=== PATIENT | female | born 1955 | race Caucasian/White ===

== ENCOUNTER 2016-06-24 10:55 | Emergency (ER) | payer OTHER ==
--- NOTE | 2016-06-24 12:35 | DIAGNOSTIC IMAGING REPORT ---
PROCEDURE: CT HEAD WITHOUT CONTRAST INDICATION: DIZZINESS TECHNIQUE: Axial CT images were acquired through the head. Coronal and sagittal reformations were created. COMPARISON: None. FINDINGS: No intracranial hemorrhage or extraaxial fluid collections. Ventricles are normal in size, shape and position. There is no mass, mass effect or midline shift. The terrazas-white matter differentiation is normal. There is no edema. The calvarium is intact. The paranasal sinuses and mastoid air cells are normally aerated. The extracranial soft tissues and orbits are normal. IMPRESSION: 1. No CT evidence of acute intracranial process. 2. Findings discussed with emergency department at 12:[address] scans at this facility use dose modulation, iterative reconstruction, and/or weight-based dosing when appropriate to reduce radiation dose to as low as reasonably achievable.
--- NOTE | 2016-06-24 12:36 | DIAGNOSTIC IMAGING REPORT ---
PROCEDURE: XR CHEST 1 VIEW INDICATION: CHEST PAIN TECHNIQUE: Portable AP view 12:12 p.m. COMPARISON: None. FINDINGS: Lungs are clear. Heart and mediastinum are normal. Thorax is normal. IMPRESSION: 1. Negative chest.
--- NOTE | 2016-06-24 14:33 | DIAGNOSTIC IMAGING REPORT ---
PROCEDURE: US BILATERAL CAROTID DOPPLER INDICATION: APHASIA TECHNIQUE: Color Doppler duplex imaging of the carotid and vertebral vessels. COMPARISON: None. FINDINGS: Right carotid system: No significant stenosis visualized. The waveforms are normal. Left carotid system: No significant stenosis visualized. The waveforms are normal. Vertebral System: Antegrade vertebral artery flow bilaterally. Right common carotid artery peak systolic velocity 96 cm/second. Right internal carotid artery peak systolic velocity 73 cm/second. Right external carotid artery peak systolic velocity 127 cm/second. Right qphfqlqv-vb-gqlljw carotid artery ratio 0.76 Right vertebral artery peak systolic velocity 55 cm/second. Left common carotid artery peak systolic velocity 70 cm/second. Left internal carotid artery peak systolic velocity 80 cm/second. Left external carotid artery peak systolic velocity 92 cm/second. Left wnlfglyl-zp-ugiwho carotid artery ratio 1.14 Left vertebral artery peak systolic velocity 36 cm/second. IMPRESSION: 1. No hemodynamically significant stenosis in either carotid system. 2. Antegrade vertebral artery flow bilaterally. Velocity criteria are extrapolated from diameter data as defined by the Society of Radiologists in Ultrasound Consensus Conference, Radiology 2003; 229; 340-346.
--- NOTE | 2016-06-24 14:33 | DIAGNOSTIC IMAGING REPORT ---
PROCEDURE: US BILATERAL CAROTID DOPPLER INDICATION: APHASIA TECHNIQUE: Color Doppler duplex imaging of the carotid and vertebral vessels. COMPARISON: None. FINDINGS: Right carotid system: No significant stenosis visualized. The waveforms are normal. Left carotid system: No significant stenosis visualized. The waveforms are normal. Vertebral System: Antegrade vertebral artery flow bilaterally. Right common carotid artery peak systolic velocity 96 cm/second. Right internal carotid artery peak systolic velocity 73 cm/second. Right external carotid artery peak systolic velocity 127 cm/second. Right lzjfnsid-kf-ihpkmd carotid artery ratio 0.76 Right vertebral artery peak systolic velocity 55 cm/second. Left common carotid artery peak systolic velocity 70 cm/second. Left internal carotid artery peak systolic velocity 80 cm/second. Left external carotid artery peak systolic velocity 92 cm/second. Left vgztohrq-np-addmgh carotid artery ratio 1.14 Left vertebral artery peak systolic velocity 36 cm/second. IMPRESSION: 1. No hemodynamically significant stenosis in either carotid system. 2. Antegrade vertebral artery flow bilaterally. Velocity criteria are extrapolated from diameter data as defined by the Society of Radiologists in Ultrasound Consensus Conference, Radiology 2003; 229; 340-346.
--- NOTE | 2016-06-24 15:01 | ED NURSING NOTES ---
Clinical Report - Nurses [facility] [address] [place] [address] 06/24/2016 10:57 Patient: IGNACIO TORRES [facility] [id number] TRIAGE Triage time 11:07. Acuity: LEVEL 3. Chief Complaint: HEADACHE, DIZZINESS, NUMBNESS, WEAKNESS and NAUSEA (Sent from [facility], re posible stroke symptoms. Speech patterns in slow, and deliberate. Lt shoulder is weaker, 4th and 5th fingers of the rt hand shake. Lt arm numb and tingly.). Alert. No acute distress. NEO COMA SCORE: Neo Coma Scale: 15- eyes open spontaneously (4); best verbal response- oriented x 4 (5); best motor response- obeys commands (6). --11:29 Kanika Shultz R.N. 11:07 06/24/16. BP: 215/75. HR: 57. RR: 17. O2 saturation: 96%. Temp: 98.5 F. Pain level now: 0/10. --11:29 Kanika Shultz R.N. Weight: 136.5 kg stated. Height/Length: 64 inches Per Patient. BMI: 51.7. --11:23 Kanika Shultz R.N. Medications Atenolol Oral 50 mg, 2x a day. --11:16 Kanika Shultz R.N. FLUoxetine HCl Oral 60mg day . --11:16 Kanika Shultz R.N. TraZODone HCl Oral 100 mg, at bedtime. --11:17 Kanika Shultz R.N. Allergy 4 Hour Oral (Tablet 4 mg) 1 tablet, q 4 hrs . --11:17 Kanika Shultz R.N. Robaxin Oral 750 mg, 3x a day as needed. --11:19 Kanika Shultz R.N. Albuterol Sulfate HFA Inhalation. --11:22 Kanika Shultz R.N. Allergies Sulfa. --11:19 Kanika Shultz R.N. Codeine. --11:19 Kanika Shultz R.N. History Arrived by private vehicle. Historian: patient. Accompanied by family. Primary physician (monique). Onset. (7 - 10 days ago, s/s are getting worse, especially the speech). 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 PAST MEDICAL HX: Immunizations: status is unknown. The patient has had a hysterectomy. SOCIAL HX: Smoker- current status unknown. Occasional alcohol use. No drug use. FALL RISK ASSESSMENT: Fall risk assessment completed. No fall risk identified. NUTRITIONAL RISK ASSESSMENT: The nutritional risk assessment revealed no deficiencies. FUNCTIONAL ASSESSMENT: Functional assessment: no impairments noted. LEARNING NEEDS ASSESSMENT: The learning needs assessment revealed no barriers. SKIN INTEGRITY ASSESSMENT: Skin integrity risk assessment completed. No skin integrity risk identified. --11:29 Kanika Shultz R.N. PROBLEMS: Depression. Asthma. Insomnia . Anxiety, PTSD. Hypertension. Hyperlipidemia. Obese. --11:21 Kanika Shultz R.N. ADDITIONAL SURGERIES: Appendectomy. Cholecystectomy. Hysterectomy. --11:23 Kanika Shultz R.N. Interventions ID band on patient. To room. --11:29 Kanika Shultz R.N. PHYSICAL ASSESSMENT Ambulatory to room. Patient gowned. GENERAL / NEURO / PSYCH: Alert. Oriented X 4. Appears in no acute distress. Appears anxious. HEENT: No facial asymmetry noted. Mucous membranes are pink. RESPIRATORY: Respirations not labored. CVS: Capillary refill less than 2 seconds. Pulses within normal limits. GI / : Abdomen nontender and normal bowel sounds. SKIN: Skin intact. Skin is warm and dry. Normal skin turgor. --11:30 Kanika Shultz R.N. NURSING PROGRESS NOTES Pulse oximeter placed on patient; monitor alarms on. Patient gowned. Head of bed elevated. Two patient identifiers checked. Call light placed in reach. Side rails up x 2. Bed placed in lowest position. Brakes of bed on. Patient ready for evaluation. --11:30 Kanika Shultz R.N. 11:16 06/24/2016 Site #1 started via IV in the left hand with an 20g angiocath, with aseptic technique and good blood return; one attempt. Saline lock flushed with 10 mL saline (Lab here to draw blood.). --11:31 Kanika Shultz R.N. 11:20. Patient ID band checked for patient name: patient confirmed. Instructions provided to collect clean catch urine and patient verbalized understanding. Clean catch urine collected with return of yellow-colored clear urine; sample sent to lab for urinalysis and culture. Specimen labeled in the presence of the patient. --11:32 Kanika Shultz R.N. EKG time: (2014). EKG was ordered, performed by a tech and shown to the ED physician. --12:15 Cornelia Thayer ER Tech1 13:40 06/24/16. BP: 116/74. HR: 56. RR: 18. O2 saturation: 97% on room air. 12:11 06/24/16. BP: 127/76. HR: 59. RR: 16. O2 saturation: 98% on room air. Pain level now: 010. --13:41 Kanika Shultz R.N. ( US done in the room.). --13:43 Kanika Shultz R.N. 15:25 06/24/2016 Site #1 removed upon discharge. Catheter intact. Bandaid applied. --15:33 Kanika Shultz R.N. DISPOSITION / DISCHARGE 15:25. Condition at departure: improved. No learning barriers present. Discharge instructions provided and reviewed with the patient. Reviewed medication(s) side effects, precautions, dosing and course information. Prescription(s) given to the patient. Activity restrictions (rest) reviewed. Patient verbalized understanding. Written instructions provided in [place]. The patient was discharged home and accompanied by family. She left the Emergency Department ambulatory and via private vehicle. Family member driving. Medication list reviewed and validated. --15:35 Kanika Shultz R.N. 15:20 06/24/16. BP: 122/60. HR: 60. RR: 16. O2 saturation: 99%. Temp: deferred. Pain level now: 02/24. 13:40 06/24/16. BP: 116/74. HR: 56. RR: 18. O2 saturation: 97% on room air. 12:11 06/24/16. BP: 127/76. HR: 59. RR: 16. O2 saturation: 98% on room air. Pain level now: 0/10. 11:07 06/24/16. BP: 215/75. HR: 57. RR: 17. O2 saturation: 96%. Temp: 98.5 F. Pain level now: 0/10. --15:35 Kanika Shultz R.N. Locked/Released at 06/24/2016 15:36 by Kanika Shultz R.N.
--- NOTE | 2016-06-24 15:01 | ED CLINICAL REPORT ---
Clinical Report - Physicians/Mid Levels [facility] [address] [place] [address] 06/24/2016 10:57 [id number] Time Seen: 11:44 Jun 24 2016. Arrived- By private vehicle. Historian- patient. CPT: ER phys charges level 5 plus (#[id number]). EKG interpretation (#[id number]). HISTORY OF PRESENT ILLNESS Chief Complaint: Difficulty with speech, dizziness and Cp on and off for a week. 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 (7 - 10 days ago, s/s are getting worse, especially the speech). and is still present. At its maximum, severity described as moderate. When seen in the E.D., severity described as moderate. Modifying factors. Not worsened by anything. Not relieved by anything. No headache, visual disturbance, muscle aches or weakness. She has had fatigue. Denies sleep problem. No decreased urine output. (No other reported neuro deficits. Pt reports that PCP today noted a possible weakness on the left.). Similar symptoms previously: Milder. Diagnosis: (stress). Recent medical care: Not recently seen/assessed. REVIEW OF SYSTEMS No fever, sore throat, sinus drainage, nasal congestion or cough. No difficulty breathing, chest pain, abdominal pain, nausea or vomiting. No diarrhea, black stools, bloody stools, difficulty with urination or skin rash. No headache, blackouts or double vision. No difficulty with ambulation. Daughter indicates she gets some stuttering with stress. Daughter and her kids just moved in with the patient. Dizziness can come with rest. No pre-syncope or vertigo. PAST HISTORY Depression. Asthma. Insomnia . Anxiety, PTSD. Hypertension. Hyperlipidemia. Obese. . ADDITIONAL SURGERIES: Appendectomy. Cholecystectomy. Hysterectomy. SOCIAL HISTORY Occasional alcohol use. No drug use. ADDITIONAL NOTES The nursing notes have been reviewed. PHYSICAL EXAM Vital Signs: 06/24/2016 11:07 BP: 215/75. HR: 57. RR: 17. O2 saturation: 96%. Temp: 98.5 F. Pain level now: 0/10. Appearance: Alert. No acute distress. Eyes: Pupils equal, round and reactive to light. Eyes normal inspection. ENT: Ears normal. Nose normal. Pharynx normal. Neck: Normal inspection. Neck supple. CVS: Normal heart rate and rhythm. Heart sounds normal. Pulses normal. Respiratory: No respiratory distress. Moderate left mid- costochondral tenderness. The tenderness is well-localized and reproduces the patient's subjective complaint. Breath sounds normal. Abdomen: Soft and nontender. Back: Normal inspection. Skin: Skin warm. Normal skin color. Rash present. Extremities: Extremities exhibit normal ROM. Neuro: NIH Stroke Scale: score 1. Level of Consciousness: alert (0). LOC Questions: both (0). LOC Commands: both (0). Best gaze: normal (0). Visual field loss: none (0). Facial palsy: normal (0). Motor arm: no drift right arm (0) and no drift left arm (0). Motor leg: no drift right leg (0) and no drift left leg (0). Limb ataxia: none (0). Sensory loss: none (0). Dysarthria: mild to moderate (1). Extinction and inattention: none (0). LABS, X-RAYS, AND EKG EKG: Normal sinus rhythm. Rate: 56. Bradycardia. Normal P waves. Decreased QRS voltage in the limb leads. Non-specific T wave changes lead 3 and AVF. Prior EKG unavailable. The study has been interpreted contemporaneously. The study has been independently viewed by me. The EKG appears to be a good tracing. Chest X-ray: Normal Chest X-Ray. CT Head: No acute changes. Head CT performed without contrast. The study was independently viewed by me and interpreted by the radiologist. Laboratory Tests: UA-Culture if indicated: (LUCHO: 06/24/2016 11:00) ( MsgRcvd 06/24/2016 12:29) Final results Test Result Flag Units (Reference) URINE COLOR YELLOW URINE APPEARANCE CLEAR URINE GLUCOSE NEGATIVE (NEGATIVE) URINE BILIRUBIN NEGATIVE (NEGATIVE) URINE KETONE NEGATIVE (NEGATIVE) URINE SPECIFIC GRAVITY 1.025 (1.010-1.030) URINE PH 6.0 (5.0-8.0) URINE PROTEIN NEGATIVE (NEGATIVE) URINE UROBILINOGEN 0.2 EU/dL (0.2-1.0) URINE NITRITE NEGATIVE (NEGATIVE) URINE BLOOD TRACE-INTACT (NEGATIVE) URINE LEUK ESTERASE NEGATIVE (NEGATIVE) URINE RBC RARE rbc/hpf (0-1) URINE WBC 0-1 wbc/hpf (0-1) URINE EPITHELIAL CELLS RARE EPI/hpf (0-5) URINE BACTERIA TRACE (<1+) (NONE SEEN) URINE COMMENT CULT NOT INDICATED URINE CULTURES ARE SET-UP BASED ON THE FOLLOWING CRITERIA:POSITIVE NITRITEPOSITIVE LEUKOCYTE ESTERASEGREATER THAN 10 WHITE BLOOD CELLSMODERATE (2+) OR GREATER BACTERIA CBC w Diff: (LUCHO: 06/24/2016 11:33) ( [facility] 06/24/2016 12:14) Final results Test Result Flag Units (Reference) WHITE BLOOD COUNT 7.9 K/uL (4.5-11.5) RED BLOOD COUNT 4.62 M/uL (4.00-5.20) HEMOGLOBIN 12.8 gm/dL (12.0-16.0) HEMATOCRIT 38.3 % (36.0-46.0) MEAN CELL VOLUME 83 fL (80-100) MEAN CORPUSCULAR HGB 28 pg (26-34) MEAN CORPUSCULAR HGB CONC 34 g/dL (31-37) RED CELL DISTRIBUTION WIDTH 14.2 % (11.6-14.8) PLATELET COUNT 290 K/uL (150-400) NEUTROPHIL % 72.3 % (50-75) LYMPH % 18.8 L % (25-40) MONO % 5.5 % (3-14) EOSINOPHIL % 3.0 % (0-4) BASOPHIL % 0.4 % (0-2) [id number]: (LUCHO: 06/24/2016 11:33) ( [facility] 06/24/2016 12:39) Final results Test Result Flag Units (Reference) D-DIMER QUANTITATIVE 0.32 ug/mLFEU (0.27-0.52) The primary value of this quantitative assay relates toits negative predictive value (i.e. exclusion) of pulmonaryembolism/deep vein thrombosis/DIC.Elevated levels of d-dimer may also occur with:, age, cancer, inflammation, liver disease,post-op, infection, hematoma, coronary disease, peripheralarteriopathy, bleeding disorders and thrombolytic treatment.Results should be correlated with other clinical andradiological data.Testing Methodology: Latex Immunoassay [id number]: (LUCHO: 06/24/2016 11:00) ( MsgRcvd 06/24/2016 12:56) Final results Test Result Flag Units (Reference) URINE DRUG SCREEN NEGATIVE The urine drug screen is a qualitative screening test fordrug overdose and abuse. All screen results should beconsidered as presumptive.Drugs screened for are as follows:PCP (Phencyclidine)BenzodiazepinesCocaineAmphetamines/MetamphetaminesTHC (Tetrahydrocannabinol)OpiatesBarbituratesTCA (Tricyclic Antidepressants)MethadonePositive results are unconfirmed. For confirmation, notifythe lab for the specimen to be sent to the reference lab.All confirmations must be performed by a differentmethodology.The ingestion of natural herbal and plant productscontaining Ephedra/Ephedra metabolites can produce in urineone or more substances capable of cross reacting withamphetamine/methamphetamine immunoassays. This testprovides a preliminary result only. A more specificalternative chemical method must be used to obtain aconfirmed analytical result. [id number]: (LUCHO: 06/24/2016 11:33) ( MsgRcvd 06/24/2016 12:46) Final results Test Result Flag Units (Reference) PROCALCITONIN <0.5 ng/mL (0-0.5) PCT Concentration: Interpretation : Risk/option for action PCT <=0.5 ng/mL : Systemic : Low risk forinfection(sepsis): progression to severeis not likely. : systemic infection.Local bacterial : CAUTION-PCT levelsinfection is : below 0.5 ng/mL do notpossible. : exclude an infection,because localizedinfections (withoutsystemic signs) may beassociated with suchlow levels. If PCT ismeasured very earlyafter a bacterialchallenge (usually <6hours), these valuesmay still be low. Inthis case PCT shouldbe re-assessed 6-24hours later. PCT >0.5 and : Systemic infection: Moderate risk for<= 2 ng/mL : (sepsis) is : progression to severepossible, but : systemic infection.other conditions : The patient should beare known to : closely monitoredelevate PCT. : both clinically andby re-assessing PCTwithin 6-24 hours. PCT > 2 ng/mL : Systemic infection: High risk for(sepsis) is likely: progression to severeunless other : systemic infection.causes are known. : PCT >= 10 ng/mL : Important systemic: High likelihood ofinflammatory : severe sepsis orresponse, almost : septic shock.exclusively due to:severe bacterial :sepsis or septic :shock. : BNP: (LUCHO: 06/24/2016 11:33) ( MsgRcvd 06/24/2016 12:52) Final results Test Result Flag Units (Reference) B-TYPE NATRIURETIC PEPTIDE 89.9 pg/ml (5-100) CHEM 13 PANEL: (LUCHO: 06/24/2016 11:33) ( MsgRcvd 06/24/2016 12:34) IP Test Result Flag Units (Reference) GLUCOSE 99 mg/dL (70-110) BUN 12 mg/dL (7-18) CREATININE 0.8 mg/dL (0.6-1.3) Estimated GFR >60 mL/min Estimated GFR- >60 mL/min Note: Persistent reduction over 3 months in eGFR<60 mL/min/1.73 m2 defines CKD. Patients with eGFR values>=60 mL/min/1.73 m2 may also have CKD if evidence ofpersistent proteinuria. Additional information may be foundat www.kidney.org. SODIUM 139 mmol/L (136-145) POTASSIUM 3.8 mmol/L (3.5-5.1) CHLORIDE 103 mmol/L (98-107) CARBON DIOXIDE 25 mmol/L (21-32) CALCIUM 8.5 mg/dL (8.5-10.1) TOTAL PROTEIN 7.1 g/dL (6.4-8.2) ALBUMIN 3.2 L g/dL (3.3-5.0) BILIRUBIN, TOTAL 0.4 mg/dL (0.0-1.0) ALKALINE PHOSPHATASE 95 U/L (46-116) AST (SGOT) 12 L U/L (15-37) ALT (SGPT) 16 U/L (12-78) MAGNESIUM 1.7 L mg/dL (1.8-2.4) CPK 30 U/L (24-260) TROPONIN I <0.05 ng/mL (0.00-1.5) TROPONIN REFERENCE RANGE:<0.1 NEGATIVE0.1-1.5 INDETERMINANT>1.5 POSITIVE . Note - Tests: (Carotid doppler negative.). PROGRESS AND PROCEDURES Course of Care: Pt has more of a dysarthria than an aphasia. It seems to be intermittent as at times she has clear speech. This may relate to the recent increased stress at her home associated with the daughter and grandkids moving in. She will start a trial of xanax to see if this helps and then follow up with neurology. Patient/family counseled. Disposition: Discharged. Condition: stable. CLINICAL IMPRESSION Dysarthria of unclear etiology. INSTRUCTIONS No strenuous activity. Warnings: Further evaluation is necessary. GENERAL WARNINGS: Return or contact your physician immediately if your condition worsens or changes unexpectedly, if not improving as expected, or if other problems arise. Your Current Medications: CONTINUE TAKING THE FOLLOWING MEDICATIONS: Albuterol Sulfate HFA Inhalation. Allergy 4 Hour Oral : Tablet 4 mg, 1 tablet q 4 hrs. Atenolol Oral : 50 mg 2x a day. FLUoxetine HCl Oral : 60mg day. Robaxin Oral : 750 mg 3x a day, prn. TraZODone HCl Oral : 100 mg at bedtime. Prescription Medications: Xanax 0.25 mg: take 1-2 orally every 6 hours as needed. Dispense ten (10). No refill. Follow-up: Follow up with a neurologist in one week. Call for the next available appointment. Understanding of the discharge instructions verbalized by patient. (Electronically signed by Howie Ritter MD 06/25/2016 9:59)
--- NOTE | 2016-06-24 15:01 | ED ORDER SUMMARY ---
..... Patient: IGNACIO TORRES OrderSheet [facility] VisitID: [id number] [address] [place] [address] 60y, F Registration Date/Time: 06/24/2016 ORDER SHEET Weight: 136.5 kg (stated) Allergies: Sulfa, Codeine GENERAL ORDERS: CT Head wo Cont Urgent (12:03 06/24/2016 Divina FAGAN) (Ack 12:14 KHoerner) (12:24 KHoerner) Wastewater Analyst (Continuous) (12:06/24/2016 Divina FAGAN) (12:08 SRoberts R.N.) Chest 1V Urgent (12:06/24/2016 Divina FAGAN) (Ack 12:14 BRIDGEToerner) (12:17 KHoerner) US Carotid Doppler Bilat Urgent (12:06/24/2016 Divina FAGAN) (Ack 12:14 Razaner) (13:06 KHoerner) Cardiac Panel Stat (12:06/24/2016 Divina FAGAN) (Ack 12:14 Razaner) (12:25 KHoerner) BNP Urgent (12:06/24/2016 Divina FAGAN) (Ack 12:14 Razaner) (12:25 KHoerner) D-Dimer Urgent (12:06/24/2016 Divina FAGAN) (Ack 12:14 BRIDGEToelatanyaner) (12:25 KHoerner) TSH Urgent (12:06/24/2016 Divina FAGAN) (Ack 12:14 Razaner) (12:25 KHoerner) CRP Urgent (12:06/24/2016 Divina FAGAN) (Ack 12:14 Razaner) (12:24 KHoerner) Pulse oximeter (12:06/24/2016 Divina FAGAN) (12:08 SRoberts R.N.) EKG - ER Stat (12:06/24/2016 Divina FAGAN) (12:08 SRoberts R.N.) PCT (Procalcitonin) Urgent (12:05 06/24/2016 Divina FAGAN) (Ack 12:14 BRIDGEToerner) (12:25 KHoerner) UA-Culture if indicated Urgent (12:06/24/2016 Divina FAGAN) (Ack 12:14 BRIDGEToerner) (12:25 KHoerner) Urine Drug Screen Urgent (12:06/24/2016 Divina FAGAN) (Ack 12:14 BRIDGEToerner) (12:25 KHoerner) MEDICATION ORDERS: IV FLUIDS: IV Saline Lock (12:06/24/2016 Divina FAGAN) (12:08 Philip Best) ORDER SHEET NOTES: [Electronically signed by Kanika Shultz R.N. (15:36 06/24/2016)] [Electronically signed by Howie Ritter MD (09:59 06/25/2016)] [Electronically locked/signed by Kanika Shultz R.N. (15:36 06/24/2016)]
--- NOTE | 2016-06-24 15:01 | ED NURSING NOTES ---
Clinical Report - Nurses [facility] [address] [place] [address] 06/24/2016 10:57 [id number] TRI[facility] Triage time 11:07. Acuity: LEVEL 3. Chief Complaint: HEADACHE, DIZZINESS, NUMBNESS, WEAKNESS and NAUSEA (Sent from [facility], re posible stroke symptoms. Speech patterns in slow, and deliberate. Lt shoulder is weaker, 4th and 5th fingers of the rt hand shake. Lt arm numb and tingly.). Alert. No acute distress. NEO COMA SCORE: Neo Coma Scale: 15- eyes open spontaneously (4); best verbal response- oriented x 4 (5); best motor response- obeys commands (6). --11:29 Kanika Shultz R.N. 11:07 06/24/16. BP: 215/75. HR: 57. RR: 17. O2 saturation: 96%. Temp: 98.5 F. Pain level now: 0/10. --11:29 Kanika Shultz R.N. Weight: 136.5 kg stated. Height/Length: 64 inches Per Patient. BMI: 51.7. --11:23 Kanika Shultz R.N. Medications Atenolol Oral 50 mg, 2x a day. --11:16 Kanika Shultz R.N. FLUoxetine HCl Oral 60mg day . --11:16 Kanika Shultz R.N. TraZODone HCl Oral 100 mg, at bedtime. --11:17 Kanika Shultz R.N. Allergy 4 Hour Oral (Tablet 4 mg) 1 tablet, q 4 hrs . --11:17 Kanika Shultz R.N. Robaxin Oral 750 mg, 3x a day as needed. --11:19 Kanika Shultz R.N. Albuterol Sulfate HFA Inhalation. --11:22 Kanika Shultz R.N. Allergies Sulfa. --11:19 Kanika Shultz R.N. Codeine. --11:19 Kanika Shultz R.N. History Arrived by private vehicle. Historian: patient. Accompanied by family. Primary physician (monique). Onset. (7 - 10 days ago, s/s are getting worse, especially the speech). 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 PAST MEDICAL HX: Immunizations: status is unknown. The patient has had a hysterectomy. SOCIAL HX: Smoker- current status unknown. Occasional alcohol use. No drug use. FALL RISK ASSESSMENT: Fall risk assessment completed. No fall risk identified. NUTRITIONAL RISK ASSESSMENT: The nutritional risk assessment revealed no deficiencies. FUNCTIONAL ASSESSMENT: Functional assessment: no impairments noted. LEARNING NEEDS ASSESSMENT: The learning needs assessment revealed no barriers. SKIN INTEGRITY ASSESSMENT: Skin integrity risk assessment completed. No skin integrity risk identified. --11:29 Kanika Shultz R.N. PROBLEMS: Depression. Asthma. Insomnia . Anxiety, PTSD. Hypertension. Hyperlipidemia. Obese. --11:21 Kanika Shultz R.N. ADDITIONAL SURGERIES: Appendectomy. Cholecystectomy. Hysterectomy. --11:23 Kanika Shultz R.N. Interventions ID band on patient. To room. --11:29 Kanika Shultz R.N. PHYSICAL ASSESSMENT Ambulatory to room. Patient gowned. GENERAL / NEURO / PSYCH: Alert. Oriented X 4. Appears in no acute distress. Appears anxious. HEENT: No facial asymmetry noted. Mucous membranes are pink. RESPIRATORY: Respirations not labored. CVS: Capillary refill less than 2 seconds. Pulses within normal limits. GI / : Abdomen nontender and normal bowel sounds. SKIN: Skin intact. Skin is warm and dry. Normal skin turgor. --11:30 Kanika Shultz R.N. NURSING PROGRESS NOTES Pulse oximeter placed on patient; monitor alarms on. Patient gowned. Head of bed elevated. Two patient identifiers checked. Call light placed in reach. Side rails up x 2. Bed placed in lowest position. Brakes of bed on. Patient ready for evaluation. --11:30 Kanika Shultz R.N. 11:16 06/24/2016 Site #1 started via IV in the left hand with an 20g angiocath, with aseptic technique and good blood return; one attempt. Saline lock flushed with 10 mL saline (Lab here to draw blood.). --11:31 Kanika Shultz R.N. 11:20. Patient ID band checked for patient name: patient confirmed. Instructions provided to collect clean catch urine and patient verbalized understanding. Clean catch urine collected with return of yellow-colored clear urine; sample sent to lab for urinalysis and culture. Specimen labeled in the presence of the patient. --11:32 Kanika Shultz R.N. EKG time: (2014). EKG was ordered, performed by a tech and shown to the ED physician. --12:15 Cornelia Thayer ER Tech1 13:40 06/24/16. BP: 116/74. HR: 56. RR: 18. O2 saturation: 97% on room air. 12:11 06/24/16. BP: 127/76. HR: 59. RR: 16. O2 saturation: 98% on room air. Pain level now: 010. --13:41 Kanika Shultz R.N. ( US done in the room.). --13:43 Kanika Shultz R.N. 15:25 06/24/2016 Site #1 removed upon discharge. Catheter intact. Bandaid applied. --15:33 Kanika Shultz R.N. DISPOSITION / DISCHARGE 15:25. Condition at departure: improved. No learning barriers present. Discharge instructions provided and reviewed with the patient. Reviewed medication(s) side effects, precautions, dosing and course information. Prescription(s) given to the patient. Activity restrictions (rest) reviewed. Patient verbalized understanding. Written instructions provided in [place]. The patient was discharged home and accompanied by family. She left the Emergency Department ambulatory and via private vehicle. Family member driving. Medication list reviewed and validated. --15:35 Kanika Shultz R.N. 15:20 06/24/16. BP: 122/60. HR: 60. RR: 16. O2 saturation: 99%. Temp: deferred. Pain level now: 02/24. 13:40 06/24/16. BP: 116/74. HR: 56. RR: 18. O2 saturation: 97% on room air. 12:11 06/24/16. BP: 127/76. HR: 59. RR: 16. O2 saturation: 98% on room air. Pain level now: 0/10. 11:07 06/24/16. BP: 215/75. HR: 57. RR: 17. O2 saturation: 96%. Temp: 98.5 F. Pain level now: 0/10. --15:35 Kanika Shultz R.N. Locked/Released at 06/24/2016 15:36 by Kanika Shultz R.N.
--- NOTE | 2016-06-24 15:01 | ED CLINICAL REPORT ---
Clinical Report - Physicians/Mid Levels [facility] [address] [place] [address] 06/24/2016 10:57 [id number] Time Seen: 11:44 Jun 24 2016. Arrived- By private vehicle. Historian- patient. CPT: ER phys charges level 5 plus (#[id number]). EKG interpretation (#[id number]). HISTORY OF PRESENT ILLNESS Chief Complaint: Difficulty with speech, dizziness and Cp on and off for a week. 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 (7 - 10 days ago, s/s are getting worse, especially the speech). and is still present. At its maximum, severity described as moderate. When seen in the E.D., severity described as moderate. Modifying factors. Not worsened by anything. Not relieved by anything. No headache, visual disturbance, muscle aches or weakness. She has had fatigue. Denies sleep problem. No decreased urine output. (No other reported neuro deficits. Pt reports that PCP today noted a possible weakness on the left.). Similar symptoms previously: Milder. Diagnosis: (stress). Recent medical care: Not recently seen/assessed. REVIEW OF SYSTEMS No fever, sore throat, sinus drainage, nasal congestion or cough. No difficulty breathing, chest pain, abdominal pain, nausea or vomiting. No diarrhea, black stools, bloody stools, difficulty with urination or skin rash. No headache, blackouts or double vision. No difficulty with ambulation. Daughter indicates she gets some stuttering with stress. Daughter and her kids just moved in with the patient. Dizziness can come with rest. No pre-syncope or vertigo. PAST HISTORY Depression. Asthma. Insomnia . Anxiety, PTSD. Hypertension. Hyperlipidemia. Obese. . ADDITIONAL SURGERIES: Appendectomy. Cholecystectomy. Hysterectomy. SOCIAL HISTORY Occasional alcohol use. No drug use. ADDITIONAL NOTES The nursing notes have been reviewed. PHYSICAL EXAM Vital Signs: 06/24/2016 11:07 BP: 215/75. HR: 57. RR: 17. O2 saturation: 96%. Temp: 98.5 F. Pain level now: 0/10. Appearance: Alert. No acute distress. Eyes: Pupils equal, round and reactive to light. Eyes normal inspection. ENT: Ears normal. Nose normal. Pharynx normal. Neck: Normal inspection. Neck supple. CVS: Normal heart rate and rhythm. Heart sounds normal. Pulses normal. Respiratory: No respiratory distress. Moderate left mid- costochondral tenderness. The tenderness is well-localized and reproduces the patient's subjective complaint. Breath sounds normal. Abdomen: Soft and nontender. Back: Normal inspection. Skin: Skin warm. Normal skin color. Rash present. Extremities: Extremities exhibit normal ROM. Neuro: NIH Stroke Scale: score 1. Level of Consciousness: alert (0). LOC Questions: both (0). LOC Commands: both (0). Best gaze: normal (0). Visual field loss: none (0). Facial palsy: normal (0). Motor arm: no drift right arm (0) and no drift left arm (0). Motor leg: no drift right leg (0) and no drift left leg (0). Limb ataxia: none (0). Sensory loss: none (0). Dysarthria: mild to moderate (1). Extinction and inattention: none (0). LABS, X-RAYS, AND EKG EKG: Normal sinus rhythm. Rate: 56. Bradycardia. Normal P waves. Decreased QRS voltage in the limb leads. Non-specific T wave changes lead 3 and AVF. Prior EKG unavailable. The study has been interpreted contemporaneously. The study has been independently viewed by me. The EKG appears to be a good tracing. Chest X-ray: Normal Chest X-Ray. CT Head: No acute changes. Head CT performed without contrast. The study was independently viewed by me and interpreted by the radiologist. Laboratory Tests: UA-Culture if indicated: (LUCHO: 06/24/2016 11:00) ( MsgRcvd 06/24/2016 12:29) Final results Test Result Flag Units (Reference) URINE COLOR YELLOW URINE APPEARANCE CLEAR URINE GLUCOSE NEGATIVE (NEGATIVE) URINE BILIRUBIN NEGATIVE (NEGATIVE) URINE KETONE NEGATIVE (NEGATIVE) URINE SPECIFIC GRAVITY 1.025 (1.010-1.030) URINE PH 6.0 (5.0-8.0) URINE PROTEIN NEGATIVE (NEGATIVE) URINE UROBILINOGEN 0.2 EU/dL (0.2-1.0) URINE NITRITE NEGATIVE (NEGATIVE) URINE BLOOD TRACE-INTACT (NEGATIVE) URINE LEUK ESTERASE NEGATIVE (NEGATIVE) URINE RBC RARE rbc/hpf (0-1) URINE WBC 0-1 wbc/hpf (0-1) URINE EPITHELIAL CELLS RARE EPI/hpf (0-5) URINE BACTERIA TRACE (<1+) (NONE SEEN) URINE COMMENT CULT NOT INDICATED URINE CULTURES ARE SET-UP BASED ON THE FOLLOWING CRITERIA:POSITIVE NITRITEPOSITIVE LEUKOCYTE ESTERASEGREATER THAN 10 WHITE BLOOD CELLSMODERATE (2+) OR GREATER BACTERIA CBC w Diff: (LUCHO: 06/24/2016 11:33) ( [facility] 06/24/2016 12:14) Final results Test Result Flag Units (Reference) WHITE BLOOD COUNT 7.9 K/uL (4.5-11.5) RED BLOOD COUNT 4.62 M/uL (4.00-5.20) HEMOGLOBIN 12.8 gm/dL (12.0-16.0) HEMATOCRIT 38.3 % (36.0-46.0) MEAN CELL VOLUME 83 fL (80-100) MEAN CORPUSCULAR HGB 28 pg (26-34) MEAN CORPUSCULAR HGB CONC 34 g/dL (31-37) RED CELL DISTRIBUTION WIDTH 14.2 % (11.6-14.8) PLATELET COUNT 290 K/uL (150-400) NEUTROPHIL % 72.3 % (50-75) LYMPH % 18.8 L % (25-40) MONO % 5.5 % (3-14) EOSINOPHIL % 3.0 % (0-4) BASOPHIL % 0.4 % (0-2) [id number]: (LUCHO: 06/24/2016 11:33) ( [facility] 06/24/2016 12:39) Final results Test Result Flag Units (Reference) D-DIMER QUANTITATIVE 0.32 ug/mLFEU (0.27-0.52) The primary value of this quantitative assay relates toits negative predictive value (i.e. exclusion) of pulmonaryembolism/deep vein thrombosis/DIC.Elevated levels of d-dimer may also occur with:, age, cancer, inflammation, liver disease,post-op, infection, hematoma, coronary disease, peripheralarteriopathy, bleeding disorders and thrombolytic treatment.Results should be correlated with other clinical andradiological data.Testing Methodology: Latex Immunoassay [id number]: (LUCHO: 06/24/2016 11:00) ( MsgRcvd 06/24/2016 12:56) Final results Test Result Flag Units (Reference) URINE DRUG SCREEN NEGATIVE The urine drug screen is a qualitative screening test fordrug overdose and abuse. All screen results should beconsidered as presumptive.Drugs screened for are as follows:PCP (Phencyclidine)BenzodiazepinesCocaineAmphetamines/MetamphetaminesTHC (Tetrahydrocannabinol)OpiatesBarbituratesTCA (Tricyclic Antidepressants)MethadonePositive results are unconfirmed. For confirmation, notifythe lab for the specimen to be sent to the reference lab.All confirmations must be performed by a differentmethodology.The ingestion of natural herbal and plant productscontaining Ephedra/Ephedra metabolites can produce in urineone or more substances capable of cross reacting withamphetamine/methamphetamine immunoassays. This testprovides a preliminary result only. A more specificalternative chemical method must be used to obtain aconfirmed analytical result. [id number]: (LUCHO: 06/24/2016 11:33) ( MsgRcvd 06/24/2016 12:46) Final results Test Result Flag Units (Reference) PROCALCITONIN <0.5 ng/mL (0-0.5) PCT Concentration: Interpretation : Risk/option for action PCT <=0.5 ng/mL : Systemic : Low risk forinfection(sepsis): progression to severeis not likely. : systemic infection.Local bacterial : CAUTION-PCT levelsinfection is : below 0.5 ng/mL do notpossible. : exclude an infection,because localizedinfections (withoutsystemic signs) may beassociated with suchlow levels. If PCT ismeasured very earlyafter a bacterialchallenge (usually <6hours), these valuesmay still be low. Inthis case PCT shouldbe re-assessed 6-24hours later. PCT >0.5 and : Systemic infection: Moderate risk for<= 2 ng/mL : (sepsis) is : progression to severepossible, but : systemic infection.other conditions : The patient should beare known to : closely monitoredelevate PCT. : both clinically andby re-assessing PCTwithin 6-24 hours. PCT > 2 ng/mL : Systemic infection: High risk for(sepsis) is likely: progression to severeunless other : systemic infection.causes are known. : PCT >= 10 ng/mL : Important systemic: High likelihood ofinflammatory : severe sepsis orresponse, almost : septic shock.exclusively due to:severe bacterial :sepsis or septic :shock. : BNP: (LUCHO: 06/24/2016 11:33) ( MsgRcvd 06/24/2016 12:52) Final results Test Result Flag Units (Reference) B-TYPE NATRIURETIC PEPTIDE 89.9 pg/ml (5-100) CHEM 13 PANEL: (LUCHO: 06/24/2016 11:33) ( MsgRcvd 06/24/2016 12:34) IP Test Result Flag Units (Reference) GLUCOSE 99 mg/dL (70-110) BUN 12 mg/dL (7-18) CREATININE 0.8 mg/dL (0.6-1.3) Estimated GFR >60 mL/min Estimated GFR- >60 mL/min Note: Persistent reduction over 3 months in eGFR<60 mL/min/1.73 m2 defines CKD. Patients with eGFR values>=60 mL/min/1.73 m2 may also have CKD if evidence ofpersistent proteinuria. Additional information may be foundat www.kidney.org. SODIUM 139 mmol/L (136-145) POTASSIUM 3.8 mmol/L (3.5-5.1) CHLORIDE 103 mmol/L (98-107) CARBON DIOXIDE 25 mmol/L (21-32) CALCIUM 8.5 mg/dL (8.5-10.1) TOTAL PROTEIN 7.1 g/dL (6.4-8.2) ALBUMIN 3.2 L g/dL (3.3-5.0) BILIRUBIN, TOTAL 0.4 mg/dL (0.0-1.0) ALKALINE PHOSPHATASE 95 U/L (46-116) AST (SGOT) 12 L U/L (15-37) ALT (SGPT) 16 U/L (12-78) MAGNESIUM 1.7 L mg/dL (1.8-2.4) CPK 30 U/L (24-260) TROPONIN I <0.05 ng/mL (0.00-1.5) TROPONIN REFERENCE RANGE:<0.1 NEGATIVE0.1-1.5 INDETERMINANT>1.5 POSITIVE . Note - Tests: (Carotid doppler negative.). PROGRESS AND PROCEDURES Course of Care: Pt has more of a dysarthria than an aphasia. It seems to be intermittent as at times she has clear speech. This may relate to the recent increased stress at her home associated with the daughter and grandkids moving in. She will start a trial of xanax to see if this helps and then follow up with neurology. Patient/family counseled. Disposition: Discharged. Condition: stable. CLINICAL IMPRESSION Dysarthria of unclear etiology. INSTRUCTIONS No strenuous activity. Warnings: Further evaluation is necessary. GENERAL WARNINGS: Return or contact your physician immediately if your condition worsens or changes unexpectedly, if not improving as expected, or if other problems arise. Your Current Medications: CONTINUE TAKING THE FOLLOWING MEDICATIONS: Albuterol Sulfate HFA Inhalation. Allergy 4 Hour Oral : Tablet 4 mg, 1 tablet q 4 hrs. Atenolol Oral : 50 mg 2x a day. FLUoxetine HCl Oral : 60mg day. Robaxin Oral : 750 mg 3x a day, prn. TraZODone HCl Oral : 100 mg at bedtime. Prescription Medications: Xanax 0.25 mg: take 1-2 orally every 6 hours as needed. Dispense ten (10). No refill. Follow-up: Follow up with a neurologist in one week. Call for the next available appointment. Understanding of the discharge instructions verbalized by patient. (Electronically signed by Howie Ritter MD 06/25/2016 9:59)
--- NOTE | 2016-06-24 15:01 | ED ORDER SUMMARY ---
..... Patient: IGNACIO TORRES OrderSheet [facility] VisitID: [id number] [address] [place] [address] 60y, F Registration Date/Time: 06/24/2016 ORDER SHEET Weight: 136.5 kg (stated) Allergies: Sulfa, Codeine GENERAL ORDERS: CT Head wo Cont Urgent (12:03 06/24/2016 Divina FAGAN) (Ack 12:14 KHoerner) (12:24 KHoerner) Pensions Retirement Plan Specialist (Continuous) (12:06/24/2016 Divina FAGAN) (12:08 SRoberts R.N.) Chest 1V Urgent (12:06/24/2016 Divina FAGAN) (Ack 12:14 BRIDGEToerner) (12:17 KHoerner) US Carotid Doppler Bilat Urgent (12:06/24/2016 Divina FAGAN) (Ack 12:14 Razaner) (13:06 KHoerner) Cardiac Panel Stat (12:06/24/2016 Divina FAGAN) (Ack 12:14 Razaner) (12:25 KHoerner) BNP Urgent (12:06/24/2016 Divina FAGAN) (Ack 12:14 Razaner) (12:25 KHoerner) D-Dimer Urgent (12:06/24/2016 Divina FAGAN) (Ack 12:14 BRIDGEToelatanyaner) (12:25 KHoerner) TSH Urgent (12:06/24/2016 Divina FAGAN) (Ack 12:14 Razaner) (12:25 KHoerner) CRP Urgent (12:06/24/2016 Divina FAGAN) (Ack 12:14 Razaner) (12:24 KHoerner) Pulse oximeter (12:06/24/2016 Divina FAGAN) (12:08 SRoberts R.N.) EKG - ER Stat (12:06/24/2016 Divina FAGAN) (12:08 SRoberts R.N.) PCT (Procalcitonin) Urgent (12:05 06/24/2016 Divina FAGAN) (Ack 12:14 BRIDGEToerner) (12:25 KHoerner) UA-Culture if indicated Urgent (12:06/24/2016 Divina FAGAN) (Ack 12:14 BRIDGEToerner) (12:25 KHoerner) Urine Drug Screen Urgent (12:06/24/2016 Divina FAGAN) (Ack 12:14 BRIDGEToerner) (12:25 KHoerner) MEDICATION ORDERS: IV FLUIDS: IV Saline Lock (12:06/24/2016 Divina FAGAN) (12:08 Philip Best) ORDER SHEET NOTES: [Electronically signed by Kanika Shultz R.N. (15:36 06/24/2016)] [Electronically signed by Howie Ritter MD (09:59 06/25/2016)] [Electronically locked/signed by Kanika Shultz R.N. (15:36 06/24/2016)]
--- NOTE | 2016-06-25 10:00 | ED MAR SUMMARY ---
..... Medication Administration Record [facility] [address], [place] [id number] Patient: IGNACIO TORRES Visit ID: [id number] 60y, F Weight: 136.5 kg Height/Length: 64 in BMI: 51.7 ALLERGIES: Codeine, Sulfa
--- NOTE | 2016-06-25 10:00 | ED MED RECONCILIATION SUMMARY ---
Patient: IGNACIO TORRES Medication Reconciliation Report [facility] VisitID: [id number] [address] [place] [address] 60y, F Registration Date/Time: 06/24/2016 Weight: 136.5 kg Height/Length: 64 in. BMI: 51.7 ALLERGIES: Codeine, Sulfa The patient's Home Medications are listed below: CONTINUE TAKING THE FOLLOWING MEDICATIONS: Albuterol Sulfate HFA Inhalation Allergy 4 Hour Oral (4 mg) 1 tablet, q 4 hrs Atenolol Oral 50 mg, 2x a day FLUoxetine HCl Oral 60mg day Robaxin Oral 750 mg, 3x a day TraZODone HCl Oral 100 mg, at bedtime The source(s) of the original Home Medication information: Not obtained. The following Medications were given to the patient in the Emergency Department: None. The following Medications were prescribed to the patient: Xanax 0.25 mg: take 1-2 orally every 6 hours as needed. Dispense ten (10). No refill. -- Howie Ritter MD
--- NOTE | 2016-06-25 10:00 | ED MAR SUMMARY ---
..... Medication Administration Record [facility] [address] [place], [place] [id number] Patient: IGNACIO TORRES Visit ID: [id number] 60y, F Weight: 136.5 kg Height/Length: 64 in BMI: 51.7 ALLERGIES: Codeine, Sulfa
--- NOTE | 2016-06-25 10:00 | ED DISCHARGE INSTRUCTIONS ---
Patient: IGNACIO TORRES General Instructions [facility] VisitID: [id number] [address] [place] [address] 60y, F Registration Date/Time: 06/24/2016 Dysarthria of unclear etiology. INSTRUCTIONS No strenuous activity. Warnings: Further evaluation is necessary. GENERAL WARNINGS: Return or contact your physician immediately if your condition worsens or changes unexpectedly, if not improving as expected, or if other problems arise. Your Current Medications: CONTINUE TAKING THE FOLLOWING MEDICATIONS: Albuterol Sulfate HFA Inhalation. Allergy 4 Hour Oral : Tablet 4 mg, 1 tablet q 4 hrs. Atenolol Oral : 50 mg 2x a day. FLUoxetine HCl Oral : 60mg day. Robaxin Oral : 750 mg 3x a day, prn. TraZODone HCl Oral : 100 mg at bedtime. Prescription Medications: Xanax 0.25 mg: take 1-2 orally every 6 hours as needed. Dispense ten (10). No refill. Follow-up: Follow up with a neurologist in one week. Call for the next available appointment. Understanding of the discharge instructions verbalized by patient. ADDITIONAL INFORMATION Alprazolam Oral tablet What is this medicine? ALPRAZOLAM (al PRAY daniel mata) is a benzodiazepine. It is used to treat anxiety and panic attacks. How should I use this medicine? Take this medicine by mouth with a glass of water. Follow the directions on the prescription label. Take your medicine at regular intervals. Do not take it more often than directed. If you have been taking this medicine regularly for some time, do not suddenly stop taking it. You must gradually reduce the dose or you may get severe side effects. Ask your doctor or health health care coordinator for advice. Even after you stop taking this medicine it can still affect your body for several days. Talk to your condenser setter regarding the use of this medicine in children. Special care may be needed. What side effects may I notice from receiving this medicine? Side effects that you should report to your doctor or health health care coordinator as soon as possible: allergic reactions like skin rash, itching or hives, swelling of the face, lips, or tongue confusion, forgetfulness depression difficulty sleeping difficulty speaking feeling faint or lightheaded, falls mood changes, excitability or aggressive behavior muscle cramps trouble passing urine or change in the amount of urine unusually weak or tired Side effects that usually do not require medical attention (report to your doctor or health health care coordinator if they continue or are bothersome): change in sex drive or performance changes in appetite What may interact with this medicine? Do not take this medicine with any of the following medications: certain medicines for HIV infection or AIDS ketoconazole itraconazole This medicine may also interact with the following medications: control pills certain macrolide antibiotics like clarithromycin, erythromycin, troleandomycin cimetidine cyclosporine ergotamine grapefruit juice herbal or dietary supplements like kava kava, melatonin, dehydroepiandrosterone, DHEA, Omer's Wort or valerian imatinib, STI-571 isoniazid levodopa medicines for depression, anxiety, or psychotic disturbances prescription pain medicines rifampin, rifapentine, or rifabutin some medicines for blood pressure or heart problems some medicines for seizures like carbamazepine, oxcarbazepine, phenobarbital, phenytoin, primidone What if I miss a dose? If you miss a dose, take it as soon as you can. If it is almost time for your next dose, take only that dose. Do not take double or extra doses. Where should I keep my medicine? Keep out of the reach of children. This medicine can be abused. Keep your medicine in a safe place to protect it from theft. Do not share this medicine with anyone. Selling or giving away this medicine is dangerous and against the law. Store at room temperature between 20 and 25 degrees C (68 and 77 degrees F). Throw away any unused medicine after the expiration date. What should I tell my health care provider before I take this medicine? They need to know if you have any of these conditions: an alcohol or drug abuse problem bipolar disorder, depression, psychosis or other mental health conditions glaucoma kidney or liver disease lung or breathing disease myasthenia gravis Parkinson's disease porphyria seizures or a history of seizures suicidal thoughts an unusual or allergic reaction to alprazolam, other benzodiazepines, foods, dyes, or preservatives or trying to get breast-feeding What should I watch for while using this medicine? Visit your doctor or health health care coordinator for regular checks on your progress. Your body can become dependent on this medicine. Ask your doctor or health health care coordinator if you still need to take it. You may get drowsy or dizzy. Do not drive, use machinery, or do anything that needs mental alertness until you know how this medicine affects you. To reduce the risk of dizzy and fainting spells, do not stand or sit up quickly, especially if you are an older patient. Alcohol may increase dizziness and drowsiness. Avoid alcoholic drinks. Do not treat yourself for coughs, colds or allergies without asking your doctor or health health care coordinator for advice. Some ingredients can increase possible side effects. You have been given the following additional information: Alprazolam Oral tablet No strenuous activity. (Electronically signed by Howie Ritter MD 06/25/2016 9:59)
--- NOTE | 2016-06-25 10:00 | ED DISCHARGE INSTRUCTIONS ---
Patient: IGNACIO TORRES General Instructions [facility] VisitID: [id number] [address] [place] [address] 60y, F Registration Date/Time: 06/24/2016 Dysarthria of unclear etiology. INSTRUCTIONS No strenuous activity. Warnings: Further evaluation is necessary. GENERAL WARNINGS: Return or contact your physician immediately if your condition worsens or changes unexpectedly, if not improving as expected, or if other problems arise. Your Current Medications: CONTINUE TAKING THE FOLLOWING MEDICATIONS: Albuterol Sulfate HFA Inhalation. Allergy 4 Hour Oral : Tablet 4 mg, 1 tablet q 4 hrs. Atenolol Oral : 50 mg 2x a day. FLUoxetine HCl Oral : 60mg day. Robaxin Oral : 750 mg 3x a day, prn. TraZODone HCl Oral : 100 mg at bedtime. Prescription Medications: Xanax 0.25 mg: take 1-2 orally every 6 hours as needed. Dispense ten (10). No refill. Follow-up: Follow up with a neurologist in one week. Call for the next available appointment. Understanding of the discharge instructions verbalized by patient. ADDITIONAL INFORMATION Alprazolam Oral tablet What is this medicine? ALPRAZOLAM (al PRAY daniel mata) is a benzodiazepine. It is used to treat anxiety and panic attacks. How should I use this medicine? Take this medicine by mouth with a glass of water. Follow the directions on the prescription label. Take your medicine at regular intervals. Do not take it more often than directed. If you have been taking this medicine regularly for some time, do not suddenly stop taking it. You must gradually reduce the dose or you may get severe side effects. Ask your doctor or health childbirth and infant care teacher for advice. Even after you stop taking this medicine it can still affect your body for several days. Talk to your masonry inspector regarding the use of this medicine in children. Special care may be needed. What side effects may I notice from receiving this medicine? Side effects that you should report to your doctor or health childbirth and infant care teacher as soon as possible: allergic reactions like skin rash, itching or hives, swelling of the face, lips, or tongue confusion, forgetfulness depression difficulty sleeping difficulty speaking feeling faint or lightheaded, falls mood changes, excitability or aggressive behavior muscle cramps trouble passing urine or change in the amount of urine unusually weak or tired Side effects that usually do not require medical attention (report to your doctor or health childbirth and infant care teacher if they continue or are bothersome): change in sex drive or performance changes in appetite What may interact with this medicine? Do not take this medicine with any of the following medications: certain medicines for HIV infection or AIDS ketoconazole itraconazole This medicine may also interact with the following medications: control pills certain macrolide antibiotics like clarithromycin, erythromycin, troleandomycin cimetidine cyclosporine ergotamine grapefruit juice herbal or dietary supplements like kava kava, melatonin, dehydroepiandrosterone, DHEA, Omer's Wort or valerian imatinib, STI-571 isoniazid levodopa medicines for depression, anxiety, or psychotic disturbances prescription pain medicines rifampin, rifapentine, or rifabutin some medicines for blood pressure or heart problems some medicines for seizures like carbamazepine, oxcarbazepine, phenobarbital, phenytoin, primidone What if I miss a dose? If you miss a dose, take it as soon as you can. If it is almost time for your next dose, take only that dose. Do not take double or extra doses. Where should I keep my medicine? Keep out of the reach of children. This medicine can be abused. Keep your medicine in a safe place to protect it from theft. Do not share this medicine with anyone. Selling or giving away this medicine is dangerous and against the law. Store at room temperature between 20 and 25 degrees C (68 and 77 degrees F). Throw away any unused medicine after the expiration date. What should I tell my health care provider before I take this medicine? They need to know if you have any of these conditions: an alcohol or drug abuse problem bipolar disorder, depression, psychosis or other mental health conditions glaucoma kidney or liver disease lung or breathing disease myasthenia gravis Parkinson's disease porphyria seizures or a history of seizures suicidal thoughts an unusual or allergic reaction to alprazolam, other benzodiazepines, foods, dyes, or preservatives or trying to get breast-feeding What should I watch for while using this medicine? Visit your doctor or health childbirth and infant care teacher for regular checks on your progress. Your body can become dependent on this medicine. Ask your doctor or health childbirth and infant care teacher if you still need to take it. You may get drowsy or dizzy. Do not drive, use machinery, or do anything that needs mental alertness until you know how this medicine affects you. To reduce the risk of dizzy and fainting spells, do not stand or sit up quickly, especially if you are an older patient. Alcohol may increase dizziness and drowsiness. Avoid alcoholic drinks. Do not treat yourself for coughs, colds or allergies without asking your doctor or health childbirth and infant care teacher for advice. Some ingredients can increase possible side effects. You have been given the following additional information: Alprazolam Oral tablet No strenuous activity. (Electronically signed by Howie Ritter MD 06/25/2016 9:59)
--- NOTE | 2016-06-25 10:00 | ED MED RECONCILIATION SUMMARY ---
Patient: IGNACIO TORRES Medication Reconciliation Report [facility] VisitID: [id number] [address] [place] [address] 60y, F Registration Date/Time: 06/24/2016 Weight: 136.5 kg Height/Length: 64 in. BMI: 51.7 ALLERGIES: Codeine, Sulfa The patient's Home Medications are listed below: CONTINUE TAKING THE FOLLOWING MEDICATIONS: Albuterol Sulfate HFA Inhalation Allergy 4 Hour Oral (4 mg) 1 tablet, q 4 hrs Atenolol Oral 50 mg, 2x a day FLUoxetine HCl Oral 60mg day Robaxin Oral 750 mg, 3x a day TraZODone HCl Oral 100 mg, at bedtime The source(s) of the original Home Medication information: Not obtained. The following Medications were given to the patient in the Emergency Department: None. The following Medications were prescribed to the patient: Xanax 0.25 mg: take 1-2 orally every 6 hours as needed. Dispense ten (10). No refill. -- oHwie Ritter MD
== END 2016-06-24 15:25 | disposition home or self-care (01) ==
LOC: IMAGING SR 10:55 → ED SRH 10:58
DX: R47.1 Dysarthria and anarthria (principal); I10 Essential (primary) hypertension; E78.5 Hyperlipidemia, unspecified; Z79.899 Other long term (current) drug therapy; Z90.710 Acquired absence of both cervix and uterus; Z88.2 Allergy status to sulfonamides; Z88.5 Allergy status to narcotic agent
CPT/HCPCS: 90004; 90074; 90100; 90616; 90939; 91320; 91556; 91585; 92610; 92720; 93004; 93140; 95059